=== PATIENT | female | born 1965 | race Two or more races ===

== ENCOUNTER 2016-12-08 05:45 | Day surgery (SDC) | payer BC ==
[~2016-12-08] VITALS: Ht 165.1 cm; Wt 60.8 kg
[2016-12-08] VITALS (12 sets, daily range): BP systolic 95–138; BP diastolic 46–83
[~2016-12-08 05:45] MED LIST: IRON PO; MAGNESIUM PO
[2016-12-08] MEDS ORDERED: ceFAZolin 1gm in D5W 55ml IVP ONE (06:00)
[2016-12-08] MEDS ORDERED: celeBREX 200mg Cap **SURGERY PATIENTS ONLY ORAL ONE ×2 (06:00→06:40)
[2016-12-08] MEDS ORDERED: oxyCONTIN 20mg tab ORAL ONE (06:00)
--- NOTE | 2016-12-08 06:42 | Anethesia Preoperative Eval ---
Anesthesia Pre-op PMH/ROS General Date of Evaluation: Dec 08, 2016 Anesthesiologist: Juan C ASA Score: ASA 2 Mallampati Score Class I : Soft palate, uvula, fauces, pillars visible Class II: Soft palate, uvula, fauces visible Class III: Soft palate, base of uvula visible Class IV: Only hard plate visible Mallampati Classification: Class II Surgeon: Sravan Diagnosis: Right shoulder torn rotator cuff Surgical Procedure: Right shoulder arthroscopy, rotator cuff repair Anesthesia History: none Family History: no anesthesia problems Allergies: Coded Allergies: SULFA (SULFONAMIDE ANTIBIOTICS) (Verified Adverse Reaction, Intermediate, NAUSEA, 12/07/16) Medications: see eMAR Past Medical History Cardiovascular: Reports: HTN, Denies: CAD, DE, arrhythmia, other, valve dz Pulmonary: Denies: COPD, MUSTAPHA, asthma, other Gastrointestinal/Genitourinary: Reports: GERD, Denies: CRI, ESRD, other Neurologic/Psychiatric: Denies: CVA, TIA, dementia, depression/anxiety, other Endocrine: Denies: DM, hypothyroidism, other, steroids HEENT: Denies: [place] (L), [place] (R), cataract (L), cataract (R), glaucoma, other Hematology/Immune: Reports: DVT, Denies: anemia, bleeding disorder, other Musculoskeletal/Integumentary: Denies: DDD, DJD, OA, RA, edema, other PSxH Narrative: Denies Anesthesia Pre-op Phys. Exam Physician Exam Last Vital Signs Date Time Temp Pulse Resp B/P Pulse Ox O2 Delivery O2 Flow Rate FiO2 12/08/16 06:19 97.7 59 20 138/78 100 Room Air Constitutional: NAD Cardiovascular: RRR Respiratory: CTA Airway Exam Mallampati Score: Class II MO: full ROM: full Teeth: intact Anesthesia Pre-op A/P Labs see chart Urine Test Test 12/08/16 06:00 Urine HCG, Qualitative Negative Studies Pre-op Studies: EKG - sr Risk Assessment & Plan Assessment: ASA II Plan: GA, interscalene block Status Change Before Surgery: No Pre-Antibiotics Drug: Ancef 1g Given Within 1 Hr of Incision: Yes Time Given: 07:30 ABDULLAHI ZAMARRIPA M.D. Dec 08, 2016 06:42
[2016-12-08] MEDS ORDERED: Ropivacaine 5mg/ml Vial 20ml INJ ONE (06:50)
[2016-12-08] MEDS ORDERED: Bupivacaine w/Epi 0.5% 30ml Vial INJ ONE (06:50)
[2016-12-08] MEDS ORDERED: fentaNYL 250mcg/5ml ONE (07:00)
[2016-12-08] MEDS ORDERED: Lidocaine 1% MPF 10mg/ml 5ml ONE (07:00)
[2016-12-08] MEDS ORDERED: Dexamethasone 4mg/ml vial ONE (07:00)
[2016-12-08] MEDS ORDERED: Zemuron 50mg/5ml Inj IV ONE (07:00)
[2016-12-08] MEDS ORDERED: Propofol 10mg/ml 20ml IV ONE (07:00)
[2016-12-08] MEDS ORDERED: NS Irrig 4000ml IRRIG ONE (07:00)
[2016-12-08] MEDS ORDERED: Ketorolac 30mg Inj ONE (07:00)
[2016-12-08] MEDS ORDERED: Midazolam 2mg/2ml Inj ONE (07:00)
[2016-12-08] MEDS ORDERED: HYDROmorphone 1mg/ml Carpuject SUBQ PRN (07:00)
[2016-12-08] MEDS ORDERED: D5 1/2NS 1,000 ML IV SCH (07:00)
[2016-12-08] MEDS ORDERED: Norco 5mg/325mg tab ORAL PRN (07:00)
[2016-12-08] MEDS ORDERED: LR 1000ml ONE (07:00)
[2016-12-08] MEDS ORDERED: Metoclopramide 10mg/2ml Inj ONE (07:00)
[2016-12-08] MEDS ORDERED: Tylenol #3 tab (300mg/30mg) ORAL PRN (07:00)
[2016-12-08] MEDS ORDERED: EPINEPHrine 1mg/1ml Amp ONE (07:01)
--- NOTE | 2016-12-08 07:03 | Pre-Procedure Note/Attestation ---
Pre-Procedure Note/Attestation Complete Prior to Procedure Planned Procedure: right Procedure Narrative: shoulder arthroscopy, rc repair, sad Indications for Procedure Pre-Operative Diagnosis: right shoulder rct, impingement Attestation I attest that I discussed the nature of the procedure; its benefits; risks and complications; and alternatives (and the risks and benefits of such alternatives ), prior to the procedure, with the patient (or the patient's legal parts counter representative). I attest that, if there was a reasonable possibility of needing a blood transfusion, the patient (or the patient's legal parts counter representative) was given the [facility] standardized written summary, pursuant to the [employer]amilia Scotty Blood Safety Act ([place] Health and Safety Code # 1645, as amended). I attest that I re-evaluated the patient just prior to the surgery and that there has been no change in the patient's H&P, except as documented below: VALENCIA NICOLE Dec 08, 2016 07:03
--- NOTE | 2016-12-08 07:10 | Operative Note - PDOC ---
Operative Note Operative Note Pre-op Diagnosis: right shoulder rct, impingement Procedure: right shoulder rc repair, sad Post-op Diagnosis: same as pre-op plus Operative Findings: consistent w/pre-op dx studies Anesthesia: MAC Specimen: none Complications: none Condition: stable Estimated Blood Loss: minimal Implant(s) used?: Yes VALENCIA NICOLE Dec 08, 2016 07:10
[2016-12-08] MEDS ORDERED: LR 1000ml 1,000 ML IVLG SCH (07:39)
--- NOTE | 2016-12-08 07:39 | Immediate Post-Op Evaluation ---
Immediate Post-Op Evalulation Immediate Post-Op Evalulation Procedure: Right shoulder arthroscopy, rotator cuff repair Date of Evaluation: Dec 08, 2016 Time of Evaluation: 08:29 IV Fluids: 800 Blood Products: 0 Estimated Blood Loss: 5 Urinary Output: 0 Blood Pressure Systolic: 95 Blood Pressure Diastolic: 50 Pulse Rate: 51 Respiratory Rate: 16 O2 Sat by Pulse Oximetry: 99 Temperature (Fahrenheit): 97 Pain Score (1-10): 0 Nausea: No Vomiting: No Complications 0 Patient Status: awake, reacts, patent, none Hydration Status: adequate Drug: Ancef 1g Given Within 1 Hr of Incision: Yes Time Given: 07:30 ABDULLAHI ZAMARRIPA M.D. Dec 08, 2016 07:39
--- NOTE | 2016-12-08 07:39 | 48 Hour Post Anesthesia Eval ---
Post Anesthesia Evaluation Procedure: Right shoulder arthroscopy, rotator cuff repair Date of Evaluation: Dec 08, 2016 Time of Evaluation: 11:30 Blood Pressure Systolic: 110 0: 81 Pulse Rate: 56 Respiratory Rate: 18 Temperature (Fahrenheit): 97.5 O2 Sat by Pulse Oximetry: 96 Airway: patent Nausea: No Vomiting: No Pain Intensity: 0 Hydration Status: adequate Cardiopulmonary Status: at baseline Mental Status/LOC: patient returned to baseline Post-Anesthesia Complications: 0 Follow-up care needed: ready to discharge ABDULLAHI ZAMARRIPA M.D. Dec 08, 2016 07:39
[2016-12-08] MEDS ORDERED: Metoclopramide 10mg/2ml Inj IVP PRN (07:45)
[2016-12-08] MEDS ORDERED: DiphenhydrAMINE 50mg/ml Inj IVP PRN (07:45)
[2016-12-08] MEDS ORDERED: Ketorolac 30mg Inj IV PRN (07:45)
[2016-12-08] MEDS ORDERED: Hydromorphone 0.5mg/0.5ml inj IVP PRN (07:45)
[2016-12-08] MEDS ORDERED: fentaNYL 100 mcg/2 mL IV PRN (07:45)
[2016-12-08] MEDS ORDERED: Midazolam 2mg/2ml Inj IVP PRN (07:45)
--- NOTE | 2016-12-08 13:31 | Operative Note - Dictated ---
DATE OF OPERATION: 12/08/2016 PREOPERATIVE DIAGNOSES: 1. Right shoulder full-thickness rotator cuff tear. 2. Right shoulder impingement syndrome. POSTOPERATIVE DIAGNOSES: 1. Right shoulder full-thickness rotator cuff tear. 2. Right shoulder impingement syndrome. PROCEDURES: 1. Right shoulder arthroscopic rotator cuff repair/debridement. 2. Right shoulder subacromial decompression bursectomy with CA ligament release SURGEON: Sarthak Aponte M.D. ANESTHESIA: Interscalene with general. INDICATION FOR PROCEDURE: The patient is a pleasant female, who sustained a mechanical fall. She has pain in the right shoulder. She had MRI, which showed a progressive possible full-thickness tear of the rotator cuff. Given that she had continued symptoms despite conservative treatment, particularly night pain and pain with activities, she elected to undergo right shoulder arthroscopy and possible rotator cuff repair. Risks, limitations, expectations, and complications of the procedure were discussed in detail. All questions were addressed. DESCRIPTION OF PROCEDURE: An informed consent was obtained, the patient was brought to the operating room and placed under interscalene with general anesthesia. The patient was then carefully placed in beach-chair position. Right shoulder was prepped and draped in a sterile manner. Time-out was performed. Portal sites were marked and injected with 0.25% Marcaine with epinephrine. Inferolateral stab incision was then made. Trocar was introduced into the glenohumeral joint. There is no obvious chondral damage. The anterior ligament appeared to be intact following the biceps tendon. The rotator cuff was actually intact. There was some erythema along the footprint supraspinatus. The camera was repositioned in the subacromial space, lateral working portal was established. Complete bursectomy was performed. Undersurface of the acromion was identified. Acromioplasty starting from lateral to medial and completed from the posterior to anterior. Once the bursectomy was further completed, the bursal side of the rotator cuff was evaluated. There was an area of tear along the bicipital tuberosity. The camera was then placed in the area of the rotator cuff. The camera was repositioned in the subacromial joint. It seemed like this was a tear that was not full- thickness. The camera was repositioned in the glenohumeral joint. Did not feel like there was enough soft tissue coverage to do a margin convergence stitch. At this point, the rotator cuff was debrided down to stable tissue. Once that was done, instruments were removed and the camera was removed. Portal sites were closed using 3-0 Monocryl sutures. Steri-Strips and a sterile dressing were applied. The patient was awoken and taken to the recovery room with stable vital signs. ESTIMATED BLOOD LOSS: Minimal. COMPLICATIONS: None. SPECIMENS: None. IMPLANTS: None. Sarthak Aponte M.D. DR: ROSALBA JOB#: [id number] CC: PARKER
[2016-12-12 06:32] VITALS: BP 110/81
== END 2016-12-08 11:55 | disposition home or self-care (01) ==
LOC: SUR 05:45 → EDBD 07:30 → SUR 11:55
DX: M75.101 Unspecified rotator cuff tear or rupture of right shoulder, not specified as traumatic (principal); M75.41 Impingement syndrome of right shoulder; I10 Essential (primary) hypertension; K21.9 Gastro-esophageal reflux disease without esophagitis; R53.83 Other fatigue; Z86.718 Personal history of other venous thrombosis and embolism; Z88.2 Allergy status to sulfonamides
CPT/HCPCS: 29826; 29827; 81025; J0171; J0690; J1100; J1885; J2250; J2405; J2704; J2765; J2795; J3010; J7120; 94003; 94150